=== PATIENT | female | born 1975 | race Caucasian/White ===

== ENCOUNTER → 2021-11-08 | Outpatient (CLI) | payer OTHER ==
--- NOTE | 2021-11-09 07:49 | MM ---
Reason for Exam: Screening (asymptomatic). Patient History: Menarche at age 18. First Full-Term at age 22. Premenopausal. Hormonal Contraceptives, from age 45 until age 46. Paternal grandmother had breast cancer, age 83. Risk Values: Whitley 5 year model risk: 0.6%. NCI Lifetime model risk: 8.0%. Prior Study Comparison: No prior studies available for comparison. Tissue Density: The breast tissue is heterogeneously dense. This may lower the sensitivity of mammography. Findings: Analyzed By CAD. There is no suspicious group of microcalcifications or new suspicious mass in either breast. Overall Assessment: Negative, BI-RAD 1 Management: Screening Mammogram of both breasts in 1 year. A clinical breast exam by your physician is recommended on an annual basis and results should be correlated with mammographic findings. Electronically signed and approved by: Vini Forrester M.D. Radiologis
== END | disposition home or self-care (01) ==
LOC: RADMAMWWP 09:27
PROVIDERS: ATTEND Obstetrics & Gynecology
DX: Z12.31 Encounter for screening mammogram for malignant neoplasm of breast (principal); Z80.3 Family history of malignant neoplasm of breast
CPT/HCPCS: 77067

== ENCOUNTER → 2023-04-19 | Outpatient (CLI) | payer OTHER ==
--- NOTE | 2023-04-24 11:33 | MM ---
Reason for Exam: Screening (asymptomatic). Last mammogram was performed 1 year(s) and 5 month(s) ago. Patient History: Menarche at age 18. First Full-Term at age 22. Premenopausal. Currently using Hormonal Contraceptives, starting at age 45. Paternal grandmother had breast cancer, age 83. Risk Values: Whitley 5 year model risk: 0.7%. NCI Lifetime model risk: 7.9%. Prior Study Comparison: 11/08/2021 Bilateral MG screening mammo w CAD, [facility]. Tissue Density: The breast tissue is heterogeneously dense. This may lower the sensitivity of mammography. Findings: Analyzed By CAD. Asymmetry left breast both medial and lateral at middle depth measuring laterally at 5.6 cm medially 4.0 cm. Another asymmetry on the right MLO view slightly above the nipple line 4.6 cm from the nipple. Overall Assessment: Incomplete: need additional imaging evaluation, BI-RAD 0 Management: Diagnostic Mammogram of both breasts. [facility] will attempt to contact patient to return for supplemental views and ultrasound if indicated. Patient should continue monthly self-breast exams. A clinical breast exam by your physician is recommended on an annual basis. This exam should not preclude additional follow-up of suspicious palpable abnormalities. Note on Whitley scores and lifetime risk: 1. A Whitley score greater than 3% is considered moderate risk. If this is the case, consider specialist referral to assess eligibility for a risk reducing agent. 2. If overall lifetime risk for the development of breast cancer is 20% or higher, the patient may qualify for future screening with alternating mammogram and breast MRI. Electronically signed and approved by: Eleno Lorenzo DO
== END | disposition home or self-care (01) ==
LOC: RADMAMWWP 07:46
PROVIDERS: ATTEND Obstetrics & Gynecology
DX: Z12.31 Encounter for screening mammogram for malignant neoplasm of breast (principal); Z80.3 Family history of malignant neoplasm of breast
CPT/HCPCS: 77067

== ENCOUNTER → 2023-05-08 | Outpatient (CLI) | payer OTHER ==
--- NOTE | 2023-05-08 10:52 | MM ---
Reason for Exam: Additional evaluation requested from abnormal screening. Last screening mammogram was performed less than 1 month ago. Patient History: Menarche at age 18. First Full-Term at age 22. Premenopausal. Currently using Hormonal Contraceptives, starting at age 45. Paternal grandmother had breast cancer, age 83. Risk Values: Whitley 5 year model risk: 0.7%. NCI Lifetime model risk: 7.9%. Prior Study Comparison: 11/08/2021 Bilateral MG screening mammo w CAD, [facility]. 04/19/2023 Bilateral MG screening mammo w CAD, [facility]. Tissue Density: The breast tissue is heterogeneously dense. This may lower the sensitivity of mammography. Findings: Analyzed By CAD. The central superior asymmetric density buildup right MLO view disperses on additional views. The 2 areas of asymmetric density medially and laterally on the CC view also disperses on additional views. Findings are compatible with superimposition shadow. Overall Assessment: Benign, BI-RAD 2 Management: Screening Mammogram of both breasts in 1 year. . Results were given to the patient verbally at the time of exam. Patient should continue monthly self-breast exams. A clinical breast exam by your physician is recommended on an annual basis. This exam should not preclude additional follow-up of suspicious palpable abnormalities. Note on Whitley scores and lifetime risk: 1. A Whitley score greater than 3% is considered moderate risk. If this is the case, consider specialist referral to assess eligibility for a risk reducing agent. 2. If overall lifetime risk for the development of breast cancer is 20% or higher, the patient may qualify for future screening with alternating mammogram and breast MRI. Electronically signed and approved by: Flores Murcia M.D. Radiologist
== END | disposition home or self-care (01) ==
LOC: RADMAMWWP 10:02
PROVIDERS: ATTEND Obstetrics & Gynecology
DX: R92.333 Mammographic heterogeneous density, bilateral breasts (principal); Z80.3 Family history of malignant neoplasm of breast
CPT/HCPCS: 77066; G0279; 77062